=== PATIENT | female | born 1960 | race Caucasian/White ===

== ENCOUNTER 2022-08-12 08:31 | Outpatient (CLI) | payer OTHER, MEDICAID, SELFPAY ==
[2022-08-12 13:35] LABS: Vitamin D 25 Hydroxy* 62 ng/mL (30-80)
[2022-08-12 14:44] LABS: Cholesterol* 212 mg/dL (90-199); HDL Cholesterol* 89 mg/dL (>=50); LDL Cholesterol Calculated 109 mg/dL (<100); Triglycerides* 69 mg/dL (40-149)
== END 2022-08-12 08:32 | disposition home or self-care (01) ==
PROVIDERS: PCP Internal Medicine; Visit Provider Internal Medicine
DX: Z00.00 Encounter for general adult medical examination without abnormal findings (principal); E78.5 Hyperlipidemia, unspecified; M85.80 Other specified disorders of bone density and structure, unspecified site; R53.1 Weakness
CPT/HCPCS: 80061; 82306

== ENCOUNTER 2022-11-27 16:33 | Outpatient (REF) | payer OTHER, SELFPAY ==
[2022-11-27 17:33] LABS: C Reactive Protein* < 0.5 mg/dL (0.5-1.0)
[2022-11-27 18:01] LABS: Erythrocyte SedimentationRate* 9 mm/hr (2-20)
== END 2022-11-27 16:34 | disposition home or self-care (01) ==
LOC: NPINS 16:33
PROVIDERS: PCP Internal Medicine; Visit Provider Nurse Practitioner
DX: H53.9 Unspecified visual disturbance (principal); M85.89 Other specified disorders of bone density and structure, multiple sites
CPT/HCPCS: 36415; 77080; 85651; 86140

== ENCOUNTER 2022-11-28 13:58 | Outpatient (CLI) | payer OTHER, SELFPAY ==
--- NOTE | 2022-11-28 14:00 | CRLHL7_ITS ---
For Patients: As a result of the Century Cures Act, medical imaging exams and procedure reports are released immediately into your electronic medical record. You may view this report before your referring provider. If you have questions, please contact your health care provider. BILATERAL SCREENING MAMMOGRAM WITH COMPUTER-AIDED DETECTION AND TOMOSYNTHESIS TECHNIQUE: CC and MLO views were obtained. These mammographic images have been obtained using full-field digital technique. These mammographic images were interpreted with the benefit of computer-aided detection. Breast Tomosynthesis was used in this interpretation. COMPARISON FILM: 08/30/21, 06/17/19, 09/26/16. FINDINGS: The breasts are heterogeneously dense, which may obscure small masses IMPRESSION: There is no radiographic evidence for malignancy. ASSESSMENT: BI-RADS Category 1: Negative RECOMMENDATION: Routine screening mammogram in 1 year. A lay language report of this examination will be provided to the patient. Lew Perez M.D. Diagnostic Radiologist [email or web address] CARI/Dictated by: Lew Perez MD @ 11/29/2022 11:26:00 AM (Electronically Signed)
== END 2022-11-28 13:59 | disposition home or self-care (01) ==
LOC: MAMMO 14:00
PROVIDERS: PCP Internal Medicine; Visit Provider Internal Medicine
DX: Z12.31 Encounter for screening mammogram for malignant neoplasm of breast (principal); R92.2 Inconclusive mammogram
CPT/HCPCS: 77063; 77067

== ENCOUNTER 2022-12-04 13:42 | Outpatient (CLI) | payer OTHER, SELFPAY ==
--- NOTE | 2022-12-04 14:00 | CRLHL7_ITS ---
For Patients: As a result of the Cures Act, medical imaging exams and procedure reports are released immediately into your electronic medical record. You may view this report before your referring provider. If you have questions, please contact your health care provider. Indication: Migraines. Technique: Multiplanar, multisequence MRI of the brain performed without and with intravenous contrast, including high resolution imaging through the IAC`s. Contrast: 15 cc Dotarem. Comparison: MR brain 09/04/2012. Findings: IAC: The 5th, 7th and 8th cranial nerve complexes are intact. No abnormal signal. No cerebellopontine angle mass or mass effect. There is normal T2 signal present within the visualized inner ear structures. Brain: The corpus callosum, optic chiasm, pituitary gland, clivus, brainstem and cerebellum appear intact. The craniocervical junction appears preserved. There is no restricted diffusion. No intracranial hemorrhage. The ventricles are proportionate to the cerebral sulci. The 4th ventricle appears midline. The basal cisterns appear patent. No abnormal extra-axial fluid collection identified. There is no intracranial mass, abnormal mass-effect or midline shift identified. Major intracranial vascular flow voids appear grossly intact. Both globes are preserved. Impression: 1. The 5th, 7th and 8th cranial nerve complexes are intact. No cerebellopontine angle mass or mass effect. 2. No acute/subacute infarct. Dictated by Gus Arnett MD @ 12/04/2022 3:58:11 PM (Electronically Signed)
== END 2022-12-04 13:43 | disposition home or self-care (01) ==
LOC: MRI 13:43
PROVIDERS: PCP Internal Medicine; Visit Provider Nurse Practitioner
DX: G43.909 Migraine, unspecified, not intractable, without status migrainosus (principal); Z82.0 Family history of epilepsy and other diseases of the nervous system
CPT/HCPCS: 70553; A9575

== ENCOUNTER 2023-07-15 08:10 | Outpatient (CLI) | payer OTHER, SELFPAY | END 2023-07-15 08:11 | disposition home or self-care (01) | LOC: NFLDREF 07-17 14:16 | PROVIDERS: PCP Internal Medicine; Referring Provider Internal Medicine; Visit Provider Internal Medicine | DX: E78.5 Hyperlipidemia, unspecified (principal); M85.80 Other specified disorders of bone density and structure, unspecified site | CPT/HCPCS: 80061; 82306 ==

== ENCOUNTER 2023-10-16 07:04 | Outpatient (CLI) | payer OTHER, SELFPAY ==
--- NOTE | 2023-10-16 07:15 | CRLHL7_ITS ---
For Patients: As a result of the Century Cures Act, medical imaging exams and procedure reports are released immediately into your electronic medical record. You may view this report before your referring provider. If you have questions, please contact your health care provider. CLINICAL HISTORY: family hx. atherosclerosis TECHNIQUE: The carotid circulations and the vertebral arteries in the neck were examined with malik-scale ultrasound, color-flow and Doppler spectral analysis. Degrees of stenosis were determined using SRU 2002 Consensus Panel Criteria. FINDINGS: Sonographic images demonstrate no evidence of atherosclerotic plaque formation or suspicious soft tissue mass. There was antegrade blood flow demonstrated within the vertebral arteries and the subclavian arteries demonstrated a normal triphasic waveform. The spectral Doppler tracings of the common carotid, internal and external carotid arteries demonstrate no abnormal turbulence or spectral broadening. There was no significant elevation of peak systolic blood flow which would indicate a hemodynamically-significant stenosis by SRU criteria. The ICA/CCA peak systolic velocity ratio measures 1.0 on the right and 0.9 on the left. IMPRESSION: Normal carotid ultrasound. Dictated by Lew Perez MD @ 10/16/2023 8:23:04 AM (Electronically Signed)
== END 2023-10-16 07:05 | disposition home or self-care (01) ==
LOC: US 07:04
PROVIDERS: PCP Internal Medicine; Visit Provider Internal Medicine
DX: I65.29 Occlusion and stenosis of unspecified carotid artery (principal)
CPT/HCPCS: 93880

== ENCOUNTER 2023-12-02 14:32 | Outpatient (CLI) | payer OTHER, SELFPAY ==
--- NOTE | 2023-12-02 14:40 | CRLHL7_ITS ---
For Patients: As a result of the Century Cures Act, medical imaging exams and procedure reports are released immediately into your electronic medical record. You may view this report before your referring provider. If you have questions, please contact your health care provider. BILATERAL SCREENING MAMMOGRAM WITH COMPUTER-AIDED DETECTION AND TOMOSYNTHESIS TECHNIQUE: CC and MLO views were obtained. These mammographic images have been obtained using full-field digital technique. These mammographic images were interpreted with the benefit of computer-aided detection. Breast Tomosynthesis was used in this interpretation. COMPARISON FILM: 11/28/22, 08/30/21, 06/17/19. FINDINGS: The breasts are heterogeneously dense, which may obscure small masses IMPRESSION: There is no radiographic evidence for malignancy. ASSESSMENT: BI-RADS Category 2: Benign RECOMMENDATION: Routine screening mammogram in 1 year. A lay language report of this examination will be provided to the patient. Lew Perez M.D. Diagnostic Radiologist [email or web address] AIRAM/tisha / be/Dictated by: Lew Perez MD @ 12/03/2023 11:12:00 AM (Electronically Signed)
== END 2023-12-02 14:33 | disposition home or self-care (01) ==
LOC: MAMMO 14:33
PROVIDERS: PCP Internal Medicine; Visit Provider Internal Medicine
DX: Z12.31 Encounter for screening mammogram for malignant neoplasm of breast (principal); R92.2 Inconclusive mammogram
CPT/HCPCS: 77063; 77067

== ENCOUNTER 2024-05-27 08:00 | Outpatient (CLI) | payer OTHER, SELFPAY ==
--- OUTSIDE RECORDS SUMMARY | 2024-05-28 12:17 | XMS_ITS | Encounter Summary ---
Author Organization [facility] Address [address] [place] [address] Care Team Providers Care Carbon Furnace Operator Name Role Phone Jaja Flanagan MD Unavailable Frw, None Unavailable Unavailable Galina Cleaning MD Primary Care Provider [phone] Ivan Mccartney MD Unavailable Genesis Lopez APRN HVAC PROJECT ENGINEER Unavailable [phone] Genesis Lopez APRN HVAC PROJECT ENGINEER Unavailable [phone] Ivan Mccartney MD Unavailable Genesis Lopez APRN HVAC PROJECT ENGINEER Unavailable Encounter Details Date Type Department Care Team (Late st Contact Info) Description 06/12/2007 MyC Medical Advice [facility] in [place] EPIC KALEIDOSCOPE ANALYST [address] [place] [address] Jaja Flanagan MD [facility] [address] [place], [place] [id number] Social History Tobacco Use Types Packs/Day Years Used Date Smoking Tobacco: Never Alcohol Use Standard Drinks/Week Comments Yes 10 (1 standard drink = 0.6 oz pu re alcohol) Sex and Gender Information Value Date Recorded Sex Assigned at Not on file Gender Identity Not on file Sexual Orientation Not on file documented as of this encounter Plan of Treatment Not on file documented as of this encounter Visit Diagnoses Not on filedocumented in this encounter Care Teams Carbon Furnace Operator Relationship Specialty Start Date End Date Jaja Flanagan MD [facility] [address] [place] [address] PCP - Obstetrics/Gynecology 08/27/04 02/26/12 Frw, None PCP - Obstetrics/Gynecology Family Practice 02/27/12 Galina Cleaning MD [facility] & [address] [address] PCP - General Internal Medicine 07/25/22 Ivan Mccartney MD [address] [place], [place] [phone] Assigned Heart and Vascular Provider 09/07/22 11/22/22 Genesis Lopez APRN HVAC PROJECT ENGINEER [address] [place] [address] Nurse Practitioner Cardiovascular Disease 11/06/22 Genesis Lopez APRN HVAC PROJECT ENGINEER [address] [place] [address] Assigned Heart and Vascular Provider 11/23/22 03/28/23 Ivan Mccartney MD [address] [place] [address] Assigned Heart and Vascular Provider 03/29/23 04/04/23 Genesis Lopez APRN HVAC PROJECT ENGINEER [address] [place] [address] Assigned Heart and Vascular Provider 04/05/23 05/22/24 documented as of this encounter
--- OUTSIDE RECORDS SUMMARY | 2024-05-28 12:17 | XMS_ITS | Clinical Summary ---
Author Organization [facility] Address [address] [place] [address] Care Team Providers Care Early Childhood Name Role Phone Frw, None Unavailable Unavailable Galina Cleaning MD Primary Care Provider [phone] Genesis Lopez APRN EVENTS AND PROMOTIONS ASSISTANT Unavailable [phone] Allergies Active Allergy Reactions Criticality Noted Date Comments Amoxicillin-Pot Clavulanate Diarrhea 02/16/20 10 Medications Medication Sig Dispensed Refills Start Date End Date Status co-enzyme Q-10 100 MG/5ML LIQD liquid Take by mouth daily Active Calcium Carb-Cholecalciferol (CALCIUM 1000 + D PO) Act emily zinc 50 MG TABS Active Shiloh-3 Fatty Acids (FISH OIL) 1200 MG capsule Take 1,200 mg by mouth daily Active rosuvastatin (CRESTOR) 5 MG tabletIndications:Fly cification of both carotid arteries Take 0.5 tablets (2.5 mg) by mouth daily 45 tablet 1 11/14/2022 Active aspirin (ASA) 81 MG EC tabletIndications:Fly cification of both carotid arteries Take 1 tablet (81 mg) by mouth daily 11/14/2022 Active Active Problems Problem Noted Date Diagnosed Date Hyperlipidemia LDL goal <70 11/14/2022 Family History Medical History Relation Comments Breast Cancer Maternal Aunt Willian.A.D. Maternal Grandfather TayAShweta. Maternal Grandmother TayAShweta. Paternal Grandfather Diabetes Paternal Grandfather TayAShweta. Paternal Grandmother Relation Status Comments Maternal Aunt Maternal Grandfather Maternal Grandmother Paternal Grandfather Paternal Grandmother Social History Tobacco Use Types Packs/Day Years Used Date Smoking Tobacco: Never Smokeless Tobacco: Never Alcohol Use Standard Drinks/Week Comments Yes 10 (1 standard drink = 0.6 oz pu re alcohol) Adolescent Education Answer Date Record ed Getting School Help Needed Not on file 08/30 Sex and Gender Information Value Date Recorded Sex Assigned at Not on file Gender Identity Not on file Sexual Orientation Not on file Last Filed Vital Signs Vital Sign Reading Time Taken Comments Blood Pressure 112/80 09/05/2022 8:45 AM CDT Pulse 65 09/05/2022 8:45 AM CDT Temperature - - Respiratory Rate - - Oxygen Saturation 98% 09/05/2022 8:45 AM CDT Inhaled Oxygen Concentration - - Weight 60.5 kg (133 lb 6.4 oz) 09/05/2022 8:45 A M CDT Height 167.6 cm (5' 6) 09/05/2022 8:45 AM CDT Body Mass Index 21.53 09/05/2022 8:45 AM CDT Plan of Treatment Health Maintenance Due Date Last Done Comments ADVANCE CARE PLANNING 1960 ANNUAL REVIEW OF HM ORDERS 1960 CT COLONOGRAPHY 1960 FIT 1960 FLEX SIG 1960 GLUCOSE 1960 sDNA (Cologuard) 1960 COLONOSCOPY 1970 COLORECTAL CANCER SCREENING 1970 HIV SCREENING 1975 HEPATITIS C SCREENING 1978 YEARLY PREVENTIVE VISIT 07/11/2007 07/11/2006 MAMMO SCREENING 07/11/2008 07/11/2006, 08/27/2004 RSV VACCINE ( & 60+) (1 - 1-dose 60+ series) 2020 COVID-19 Vaccine (2022- season) 2023 09/13/2022, 06/14/2022, 11/05/2021, Additional history exists LIPID 08/12/2023 08/12/2022, 07/01, 08/16/2020, Additional history exists PHQ-2 (once per calendar year) 2023 PAP 07/19/2024 07/19/2021, 07/01, 09/17/2016, Additional history exists INFLUENZA VACCINE (Season Ended) 2024 09/13/2022, 08/21/2021, 08/25/2020, Additional history exists DTAP/TDAP/TD IMMUNIZATION (4 - Td or Tdap) 08/15/2032 08/15/2022, 02/20/2012, 06/05/2006 ZOSTER IMMUNIZATION Completed 05/27/2019, 03/25/2019, 03/17/2019, Additional history exists HPV IMMUNIZATION Aged Out No longer e ligible based on patient's age to complete this topic IPV IMMUNIZATION Aged Out No longer e ligible based on patient's age to complete this topic MENINGITIS IMMUNIZATION Aged Out No l onger eligible based on patient's age to complete this topic Pneumococcal Vaccine: Pediatrics (0 to 5 Years) and At-Risk Patients (6 to 64 Years) Aged Out No longer eligible based on patient's age to complete this topic RSV MONOCLONAL ANTIBODY Aged Out No l onger eligible based on patient's age to complete this topic Procedures Procedure Name Priority Date/Time Associated Diagnosis Comments LIPID PROFILE Routine 08/12/2022 7:45 AM CDT C MAMMOGRAM, SCREENING Routine 07/11/2006 Routine Welder Fitter Helper Examination HCL PAP THIN LAYER SCREEN Routine 11/14/2003 11:31 AM MULTIMEDIA TECHNICIAN Nonspec Abnl Pap Smear Cervix, Unspec from Last 3 Months or Most Recently Relevant to Health Maintenance Results * (ABNORMAL) Lipid Profile (08/12/2022 7:45 AM CDT) Triglycerides (External) 69 40 - 149 mg/dL NON-INTERFACE D (ONBASE SCANS) Cholesterol (External) 212(H) 90 - 199 mg/dL NON-INTERFACE D (ONBASE SCANS) LDL Cholesterol Calculated (External) 109(H) <100 mg/dL NON-INTERFACE D (ONBASE SCANS) HDL Cholesterol (External) 89 >=50 mg/dL NON-INTERFACE D (ONBASE SCANS) Blood 08/12/2022 7:45 AM CDT Xenia CARTERT - 09/02/2022 10:07 AM CDT Verified by Jace Cunningham on 09/02/2022. Galina Cleaning MD LAB - BLOOD ORDERABL ES [facility] PFT NON-INTERFACED (ONBASE SCANS) * MAMMOGRAM, SCREENING (07/11/2006) MAMMOGRAM CAT 1 [facility] Anatomical Region Laterality Modality Other Narrative 07/11/2006 PATIENT NAME: ALMITA MCKENNA DATE OF : 60 DATE OF SERVICE: 07-11-06 ORDERING PHYSICIAN: ??[place] ? PATIENT STATUS: OUTPT BILATERAL SCREENING MAMMOGRAM: Breast symptoms: ??None. Previous mammography: ??08-27-04. Breast parenchyma: ??Heterogeneously dense. Comment: ??No significant change. IMAGING IMPRESSION: ??ARC BIRADS Category No. 1, negative. A letter has been sent to the patient. This study was evaluated with the assistance of CAD (R2 v5.3). Reggie Balderas M.D./ceasar D: 07-15-06 T: 07-15-06 Jaja Flanagan MD SPECIAL IMAGING STUDIES * A THIN LAYER PAP SCREEN (11/14/2003 11:31 AM MULTIMEDIA TECHNICIAN) PAP WNL [facility] Narrative [facility] - 11/14/2003 11:31 AM MULTIMEDIA TECHNICIAN ?? DATE RECEIVED: ??11/08/03 PROVIDER: [place] SPECIMEN ADEQUACY: ??Satisfactory for evaluation INTERPRETATION: ??Negative for intraepithelial lesion or malignancy OTHER: ?? COMMENTS AND RECOMMENDATION: ??NO ENDOCERVICALS Pathologist sign: Wilbur Yates M.D. Silk Washing Machine Operator sign: LD Young(ASCP) Limitations: ??The Pap test is a screening test designed to detect squamous cell carcinoma of the cervix and its precursors. ??While the Pap test was designed for squamous lesions of the cervix, it may also detect glandular lesions of the cervix. ??It is, however, inaccurate for the detection of endometrial lesions and should not be used as a primary screening tool to evaluate women with suspected endometrial abnormalities. ??As a screening test, it has about 5 to 10 percent false-negative results. ??This rate appears to be reduced, but not eliminated, by liquid based (thin-layer) Pap tests. ??Therefore, remind your patient to consult you immediately if she experiences any suspicious signs or symptoms, regardless of her Pap test result. Jaja Flanagan MD [facility] [address] from Last 3 Months or Most Recently Relevant to Health Maintenance Care Teams Early Childhood Relationship Specialty Start Date End Date Frw, None PCP - Obstetrics/Gynecology Family Practice 02/27/12 Galina Cleaning MD [facility] [address] [place] [address] PCP - General Internal Medicine 07/25/22 Genesis Lopez APRN EVENTS AND PROMOTIONS ASSISTANT [address] [address] Nurse Practitioner Cardiovascular Disease 11/06/22
--- OUTSIDE RECORDS SUMMARY | 2024-05-28 12:17 | XMS_ITS | Encounter Summary ---
Author Organization [facility] Address [address] [place] [address] Care Team Providers Care Security Alarm Technician Name Role Phone Jaja Flanagan MD Unavailable Frw, None Unavailable Unavailable Galina Cleaning MD Primary Care Provider Ivan Mccartney MD Unavailable Genesis Lopez APRN INSTRUCTIONAL TECHNOLOGIST Unavailable Genesis Lopez APRN INSTRUCTIONAL TECHNOLOGIST Unavailable Ivan Mccartney MD Unavailable Genesis Lopez APRN INSTRUCTIONAL TECHNOLOGIST Unavailable [phone] Reason for Visit * Reason Onset Date Comments Refill Request 04/21/2006 hydroxyzine Encounter Details Date Type Department Care Team (Late st Contact Info) Description 04/21/2006 Refill [facility] in [place] ADMINISTRATIVE PROCESSOR [address] [place] [phone] Jaja Flanagan MD [facility] [address] [place], [place] [id number] Refill Request (hydroxyzine) Social History Tobacco Use Types Packs/Day Years Used Date Smoking Tobacco: Never Alcohol Use Standard Drinks/Week Comments Yes 10 (1 standard drink = 0.6 oz pu re alcohol) Sex and Gender Information Value Date Recorded Sex Assigned at Not on file Gender Identity Not on file Sexual Orientation Not on file documented as of this encounter Miscellaneous Notes * Telephone Encounter - Swati Oliva - 04/21/2006 4:20 PM CDT Accepting this Rx will FAX it directly to the pharmacy. documented in this encounter Plan of Treatment Not on file documented as of this encounter Visit Diagnoses Not on filedocumented in this encounter Care Teams Security Alarm Technician Relationship Specialty Start Date End Date Jaja Flangaan MD [facility] [address] [place] [address] PCP - Obstetrics/Gynecology 08/27/04 02/26/12 Frw, None PCP - Obstetrics/Gynecology Family Practice 02/27/12 Galina Cleaning MD [facility] & [address] [address] PCP - General Internal Medicine 07/25/22 Ivan Mccartney MD [address] [place] [place] [address] Assigned Heart and Vascular Provider 09/07/22 11/22/22 Genesis Lopez APRN INSTRUCTIONAL TECHNOLOGIST [address] [address] Nurse Practitioner Cardiovascular Disease 11/06/22 Genesis Lopez APRN INSTRUCTIONAL TECHNOLOGIST [address] [address] Assigned Heart and Vascular Provider 11/23/22 03/28/23 Ivan Mccartney MD [address] [place] [address] Assigned Heart and Vascular Provider 03/29/23 04/04/23 Genesis Lopez APRN INSTRUCTIONAL TECHNOLOGIST [address] [address] Assigned Heart and Vascular Provider 04/05/23 05/22/24 documented as of this encounter
--- OUTSIDE RECORDS SUMMARY | 2024-05-28 12:17 | XMS_ITS | Encounter Summary ---
Author Organization [facility] Address [address] [place] [address] Care Team Providers Care Director Of Radiology Name Role Phone Frw, None Unavailable Unavailable Galina Cleaning MD Primary Care Provider Ivan Mccartney MD Unavailable Genesis Lopez APRN RESEARCH AND DEVELOPMENT MANAGER Unavailable [phone] Genesis Lopez APRN RESEARCH AND DEVELOPMENT MANAGER Unavailable [phone] Ivan Mccartney MD Unavailable Genesis Lopez APRN RESEARCH AND DEVELOPMENT MANAGER Unavailable [phone] Encounter Details Date Type Department Care Team (Late st Contact Info) Description 08/12/2022 External Order Results [facility] [address] [place] [address] Outside, Provider Social History Tobacco Use Types Packs/Day Years [...] on file documented as of this encounter Procedures Procedure Name Priority Date/Time Associated Diagnosis Comments VITAMIN D DEFICIENCY SCREENING Routine 08/12/2022 7:45 AM CDT LIPID PROFILE Routine 08/12/2022 7:45 AM CDT documented in this encounter Results * Vitamin D Deficiency (08/12/2022 7:45 AM CDT) Vitamin D Deficiency Screening (External) 62 30 - 80 ng/mL NON-INTERFACED (ONBASE SCANS) Blood 08/12/2022 7:45 AM CDT Narrative B[facility]ZE PFT - 09/02/2022 10:07 AM CDT Verified by Jace Cunningham on 09/02/2022. Galina Cleaning MD LAB - BLOOD ORDERABL ES Performing Organization Address City/[facility]/ZIP Co de Phone Number [facility] PFT NON-INTERFACED (ONBASE SCANS) * (ABNORMAL) Lipid Profile (08/12/2022 7:45 AM CDT) Triglycerides (External) 69 40 - 149 mg/dL NON-INTERFACE D (ONBASE SCANS) Cholesterol (External) 212(H) 90 - 199 mg/dL NON-INTERFACE D (ONBASE SCANS) LDL Cholesterol Calculated (External) 109(H) <100 mg/dL NON-INTERFACE D (ONBASE SCANS) HDL Cholesterol (External) 89 >=50 mg/dL NON-INTERFACE D (ONBASE SCANS) Blood 08/12/2022 7:45 AM CDT Narrative [facility]ZE PFT - 09/02/2022 10:07 AM CDT Verified by Jace Cunningham on 09/02/2022. Galina Cleaning MD LAB - BLOOD ORDERABL ES B[facility]ZE PFT NON-INTERFACED (ONBASE SCANS) documented in this encounter Visit Diagnoses Not on filedocumented in this encounter Care Teams Director Of Radiology Relationship Specialty Start Date End Date Frw, None PCP - Obstetrics/Gynecology Family Practice 02/27/12 Galina Cleaning MD [facility] & [address] [address] PCP - General Internal Medicine 07/25/22 Ivan Mccartney MD [address] [place] [address] Assigned Heart and Vascular Provider 09/07/22 11/22/22 Genesis Lopez APRN RESEARCH AND DEVELOPMENT MANAGER [address] [address] Nurse Practitioner Cardiovascular Disease 11/06/22 Genesis Lopez APRN RESEARCH AND DEVELOPMENT MANAGER [address] [address] Assigned Heart and Vascular Provider 11/23/22 03/28/23 Ivan Mccartney MD [address] [place] [address] Assigned Heart and Vascular Provider 03/29/23 04/04/23 Genesis Lopez APRN RESEARCH AND DEVELOPMENT MANAGER [address] [address] Assigned Heart and Vascular Provider 04/05/23 05/22/24 documented as of this encounter
--- OUTSIDE RECORDS SUMMARY | 2024-05-28 12:17 | XMS_ITS | Encounter Summary ---
Author Organization [facility] Address [address] [place] [address] Care Team Providers Care Wood Flooring Specialist Name Role Phone Jaja Flanagan MD Unavailable [phone] Frw, None Unavailable Unavailable Galina Cleaning MD Primary Care Provider Ivan Mccartney MD Unavailable Genesis Lopez APRN WAREHOUSE ORDER SELECTOR Unavailable [phone] Genesis Lopez APRN WAREHOUSE ORDER SELECTOR Unavailable Ivan Mccartney MD Unavailable Genesis Lopez APRN WAREHOUSE ORDER SELECTOR Unavailable Reason for Visit * Reason Onset Date Comments Refill Request 11/03/2008 amy Encounter Details Date Type Department Care Team (Late st Contact Info) Description 11/03/2008 MyC Refill [facility] [place] TOP PRECIPITATOR OPERATOR [address] [place] [phone] Jaja Flanagan MD [facility] [address] [place], [place] [phone] Refill Request (amy) Social History Tobacco Use Types Packs/Day Years Used Date Smoking Tobacco: Never Alcohol Use Standard Drinks/Week Comments Yes 10 (1 standard drink = 0.6 oz pu re alcohol) Sex and Gender Information Value Date Recorded Sex Assigned at Not on file Gender Identity Not on file Sexual Orientation Not on file documented as of this encounter Miscellaneous Notes * Telephone Encounter - Kathy Carl - 11/07/2008 11:[address] Flanagan called her. TESTER * Telephone Encounter - Jaja Flanagan - 11/03/2008 12:15 PM SIZE TESTER Jason, can you call her? Also, tell her that we will no longer be getting samples after the first ofthe year. Does she want some now? TESTER * Telephone Encounter - Wanda Marie - 11/03/2008 9:05 AM CST Faxed request from pharmacy,will be directly faxed back if approved. Almita would like to speak to you about the rx and additional things before she gets this refill, soplease call her at her home phone. Thank you. TESTER documented in this encounter Plan of Treatment Not on file documented as of this encounter Visit Diagnoses Not on filedocumented in this encounter Care Teams Wood Flooring Specialist Relationship Specialty Start Date End Date Jaja Flanagan MD [facility] [address] [place] [address] PCP - Obstetrics/Gynecology 08/27/04 02/26/12 Frw, None PCP - Obstetrics/Gynecology Family Practice 02/27/12 Galina Cleaning MD [facility] - [address] [address] PCP - General Internal Medicine 07/25/22 Ivan Mccartney MD [address], [facility] [address] [address] Assigned Heart and Vascular Provider 09/07/22 11/22/22 Genesis Lopez APRN WAREHOUSE ORDER SELECTOR [address] [address] Nurse Practitioner Cardiovascular Disease 11/06/22 Genesis Lopez APRN WAREHOUSE ORDER SELECTOR [address] [address] Assigned Heart and Vascular Provider 11/23/22 03/28/23 Ivan Mccartney MD [address] [facility] [address] [id number] Assigned Heart and Vascular Provider 03/29/23 04/04/23 Genesis Lopez APRN WAREHOUSE ORDER SELECTOR [address] [address] Assigned Heart and Vascular Provider 04/05/23 05/22/24 documented as of this encounter
--- OUTSIDE RECORDS SUMMARY | 2024-05-28 12:17 | XMS_ITS | Encounter Summary ---
Author Organization [place] [facility] Address [address] [place] [address] Care Team Providers Care Stair Builder Name Role Phone Frw, None Unavailable Unavailable Galina Cleaning MD Primary Care Provider Genesis Lopez APRN LAND SURVEY TECHNICIAN Unavailable [phone] Genesis Lopez APRN LAND SURVEY TECHNICIAN Unavailable [phone] Ivan Mccartney MD Unavailable Genesis Lopez APRN LAND SURVEY TECHNICIAN Unavailable [phone] Encounter Details Date Type Department Care Team (Late st Contact Info) Description 12/01/2022 [facility] [address] [place] [address] Genesis Lopez APRN LAND SURVEY TECHNICIAN [address] [place] [address] Social History Tobacco Use Types Packs/Day Years [...] on filedocumented in this encounter Care Teams Stair Builder Relationship Specialty Start Date End Date Frw, None PCP - Obstetrics/Gynecology Family Practice 02/27/12 Galina Cleaning MD [facility] - [address] [address] PCP - General Internal Medicine 07/25/22 Genesis Lopez APRN LAND SURVEY TECHNICIAN [address] 922865 Nurse Practitioner Cardiovascular Disease 11/06/22 Genesis Lopez APRN LAND SURVEY TECHNICIAN [address] 196075 Assigned Heart and Vascular Provider 11/23/22 03/28/23 Ivan Mccartney MD [address] [facility] [address] [id number] Assigned Heart and Vascular Provider 03/29/23 04/04/23 Genesis Lopez APRN LAND SURVEY TECHNICIAN [address] 450395 Assigned Heart and Vascular Provider 04/05/23 05/22/24 documented as of this encounter
--- OUTSIDE RECORDS SUMMARY | 2024-05-28 12:17 | XMS_ITS | Encounter Summary ---
Author Organization [facility] Address [address] [place] [address] Care Team Providers Care Manager Fixed Income Name Role Phone Frw, None Unavailable Unavailable Galina Cleaning MD Primary Care Provider Ivan Mccartney MD Unavailable Genesis Lopez APRN FOOD SCIENCE TECHNICIAN Unavailable [phone] Genesis Lopez APRN FOOD SCIENCE TECHNICIAN Unavailable [phone] Ivan Mccartney MD Unavailable Genesis Lopez APRN FOOD SCIENCE TECHNICIAN Unavailable [phone] Encounter Details Date Type Department Care Team (Late st Contact Info) Description 09/30/2022 [facility] [place] [address] [place] [address] [address] [place] [address] Ivan Mccartney MD [address] [facility] [address] [place], [place] [id number] Social History Tobacco Use Types Packs/Day Years Used Date Smoking Tobacco: Never Smokeless Tobacco: Never Alcohol Use Standard Drinks/Week Comments Yes 10 (1 standard drink = 0.6 oz pu re alcohol) Sex and Gender Information Value Date Recorded Sex Assigned at Not on file Gender Identity Not on file Sexual Orientation Not on file COVID-19 Exposure Response Date Recorded In the last 10 days, have yo u been in contact with someone who was confirmed or suspected to have Coronavirus/COVID-19? No / Unsure 10/01/2022 8:37 AM CDT documented as of this encounter Plan of Treatment Not on file documented as of this encounter Visit Diagnoses Not on filedocumented in this encounter Care Teams Manager Fixed Income Relationship Specialty Start Date End Date Frw, None PCP - Obstetrics/Gynecology Family Practice 02/27/12 Galina Cleaning MD [facility] - [address] [address] PCP - General Internal Medicine 07/25/22 Ivan Mccartney MD [address] [id number] Assigned Heart and Vascular Provider 09/07/22 11/22/22 Genesis Lopez APRN FOOD SCIENCE TECHNICIAN [address] 529215 Nurse Practitioner Cardiovascular Disease 11/06/22 Genesis Lopez APRN FOOD SCIENCE TECHNICIAN [address] 875975 Assigned Heart and Vascular Provider 11/23/22 03/28/23 Ivan Mccartney MD [address] [id number] Assigned Heart and Vascular Provider 03/29/23 04/04/23 Genesis Lopez APRN FOOD SCIENCE TECHNICIAN [address] 340335 Assigned Heart and Vascular Provider 04/05/23 05/22/24 documented as of this encounter
--- OUTSIDE RECORDS SUMMARY | 2024-05-28 12:17 | XMS_ITS | Encounter Summary ---
Author Organization [facility] Address [address] [place] [address] Care Team Providers Care Solution Coordinator Name Role Phone Frw, None Unavailable Unavailable Galina Cleaning MD Primary Care Provider [phone] Ivan Mccartney MD Unavailable Genesis Lopez APRN IT ADMINISTRATOR Unavailable [phone] Genesis Lopez APRN IT ADMINISTRATOR Unavailable [phone] Ivan Mccartney MD Unavailable Genesis Lopez APRN IT ADMINISTRATOR Unavailable [phone] Encounter Details Date Type Department Care Team (Late st Contact Info) Description 10/01/2022 [facility] [place] [facility] Adv[facility] [address] [place] [address] [address] [place] [address] Ivan Mccartney MD [address] [facility] [address] [place], [place] 7913[address] Social History Tobacco Use Types Packs/Day Years [...] on filedocumented in this encounter Care Teams Solution Coordinator Relationship Specialty Start Date End Date Frw, None PCP - Obstetrics/Gynecology Family Practice 02/27/12 Galina Cleaning MD [facility] - [address] [address] PCP - General Internal Medicine 07/25/22 Ivan Mccartney MD [address] 807115 Assigned Heart and Vascular Provider 09/07/22 11/22/22 Genesis Lopez APRN IT ADMINISTRATOR [address] 230185 Nurse Practitioner Cardiovascular Disease 11/06/22 Genesis Lopez APRN IT ADMINISTRATOR [address] 191145 Assigned Heart and Vascular Provider 11/23/22 03/28/23 Ivan Mccartney MD [address] [id number] Assigned Heart and Vascular Provider 03/29/23 04/04/23 Genesis Lopez APRN IT ADMINISTRATOR [address] 232475 Assigned Heart and Vascular Provider 04/05/23 05/22/24 documented as of this encounter
--- OUTSIDE RECORDS SUMMARY | 2024-05-28 12:17 | XMS_ITS | Encounter Summary ---
Author Organization [facility] Address [address] [place] [address] Care Team Providers Care Instrument Processing Tech Name Role Phone Jaja Flanagan MD Unavailable Frw, None Unavailable Unavailable Galina Cleaning MD Primary Care Provider Ivan Mccartney MD Unavailable Genesis Lopez APRN PRODUCTION AIDE Unavailable [phone] Genesis Lopez APRN PRODUCTION AIDE Unavailable [phone] Ivan Mccartney MD Unavailable Genesis Lopez APRN PRODUCTION AIDE Unavailable [phone] Reason for Visit * Reason Onset Date Comments Refill Request 11/07/2008 yana Encounter Details Date Type Department Care Team (Late st Contact Info) Description 11/06/2008 MyC Refill [facility] [place] GROOVER AND STRIPER OPERATOR [address] [place] [phone] Jaja Flanagan MD [facility] [address] [place], [place] [phone] Refill Request (yana) Social History Tobacco Use Types Packs/Day Years Used Date Smoking Tobacco: Never Alcohol Use Standard Drinks/Week Comments Yes 10 (1 standard drink = 0.6 oz pu re alcohol) Sex and Gender Information Value Date Recorded Sex Assigned at Not on file Gender Identity Not on file Sexual Orientation Not on file documented as of this encounter Miscellaneous Notes * Telephone Encounter - Cherise Uribe - 11/07/2008 9:24 AM CSTMessage from Thuyjer[place]: Dalila Dubose Bacilio Nov 07, 2008 9:21 AM ----- Message ----- From: Almita Clarke Sent: Nov 06, 2008 6:55 PM To: [facility] [place] Subject: Medication Renewal Request Original authorizing provider: MD Almita Catherine would like a refill of the following medications: YANA 3-0.02 MG OR TABS [Jaja Flanagan MD] Preferred pharmacy: other Comment: Hi, Dr. Flanagan had called and left a message for me to email her through my chart. I forgot how todo that so thought that I'd forward this to you and if you could give her my email address, she João can just email that way. My email address is [email or web address] Phone number for home, after 3:15, is [phone]. Thank you so much. Sasha CH OPTIMIZATION ANALYST documented in this encounter Plan of Treatment Not on file documented as of this encounter Visit Diagnoses Not on filedocumented in this encounter Care Teams Instrument Processing Tech Relationship Specialty Start Date End Date Jaja Flanagan MD [facility] [address] [place] [address] PCP - Obstetrics/Gynecology 08/27/04 02/26/12 Frw, None PCP - Obstetrics/Gynecology Family Practice 02/27/12 Galina Cleaning MD [facility] - [address] [address] PCP - General Internal Medicine 07/25/22 Ivan Mccartney MD [address] [facility] [address] [address] Assigned Heart and Vascular Provider 09/07/22 11/22/22 Genesis Lopez APRN PRODUCTION AIDE [address] [address] Nurse Practitioner Cardiovascular Disease 11/06/22 Genesis Lopez APRN PRODUCTION AIDE [address] [address] Assigned Heart and Vascular Provider 11/23/22 03/28/23 Ivan Mccartney MD [address] [facility] [address] [id number] Assigned Heart and Vascular Provider 03/29/23 04/04/23 Genesis Lopez APRN PRODUCTION AIDE [address] 613355 Assigned Heart and Vascular Provider 04/05/23 05/22/24 documented as of this encounter
--- OUTSIDE RECORDS SUMMARY | 2024-05-28 12:17 | XMS_ITS | Encounter Summary ---
Author Organization [place] [facility] Address [address] [place] [address] Care Team Providers Care Hog Driver Name Role Phone Frw, None Unavailable Unavailable Galina Cleaning MD Primary Care Provider Ivan Mccartney MD Unavailable Genesis Lopez APRN FOOD SAFETY DIRECTOR Unavailable [phone] Genesis Lopez APRN FOOD SAFETY DIRECTOR Unavailable [phone] Ivan Mccartney MD Unavailable Genesis Lopez APRN FOOD SAFETY DIRECTOR Unavailable [phone] Encounter Details Date Type Department Care Team (Late st Contact Info) Description 08/16/2020 External Order Results [facility] [address] [place] [address] Outside, Provider Social History Tobacco Use Types [...] Date/Time Associated Diagnosis Comments LIPID PROFILE Routine 08/16/2020 7:40 AM CDT documented in this encounter Results * Lipid Profile (08/16/2020 7:40 AM CDT) Cholesterol (External) 181 90 - 200 MG/DL NON-INTERFACE D (ONBASE SCANS) Triglycerides (External) 60 40 - 197 MG/DL NON-INTERFACE D (ONBASE SCANS) LDL-Cholesterol (External) 73 <100 mg/dL NON-INTERFACE D (ONBASE SCANS) HDL Cholesterol (External) 96 >=50 mg/dL NON-INTERFACE D (ONBASE SCANS) Blood 08/16/2020 7:40 AM CDT Narrative [facility] - 09/02/2022 10:07 AM CDT Verified by Nadine Thompson on 09/02/2022. Galina Cleaning MD LAB - BLOOD ORDERABL ES [facility] NON-INTERFACED (ONBASE SCANS) documented in this encounter Visit Diagnoses Not on filedocumented in this encounter Care Teams Hog Driver Relationship Specialty Start Date End Date Frw, None PCP - Obstetrics/Gynecology Family Practice 02/27/12 Galina Cleaning MD [facility] & [address] [address] PCP - General Internal Medicine 07/25/22 Ivan Mccartney MD [address] 885695 Assigned Heart and Vascular Provider 09/07/22 11/22/22 Genesis Lopez APRN FOOD SAFETY DIRECTOR [address] [address] Nurse Practitioner Cardiovascular Disease 11/06/22 Genesis Lopez APRN FOOD SAFETY DIRECTOR [address] [address] Assigned Heart and Vascular Provider 11/23/22 03/28/23 Ivan Mccartney MD [address] [id number] Assigned Heart and Vascular Provider 03/29/23 04/04/23 Genesis Lopez APRN FOOD SAFETY DIRECTOR [address] 072515 Assigned Heart and Vascular Provider 04/05/23 05/22/24 documented as of this encounter
--- OUTSIDE RECORDS SUMMARY | 2024-05-28 12:17 | XMS_ITS | Clinical Summary ---
Author Organization [facility] Address [place], [place] [address] Care Team Providers Care Lathe Setup Operator Name Role Phone Sujata Sloan MD Primary Care Provider Allergies Active Allergy Reactions Criticality Noted Date Comments Amoxicillin-Pot Clavulanate Diarrhea 02/16/20 10 Medications Medication Sig Dispensed Refills Start Date End Date Status glucosamine-chondroit -vit c-mn (GLUCOSAMINE CHONDROITIN MAXSTR) 500-400 mg CapIndications:Osteoa rthritis Take 1 Cap by mouth 3 times daily. 90 Cap 3 02/16/2010 Active multivitamin-folic acid 0.4 mg (MULTI-DAY) tablet Take 1 tablet by mouth once daily. 0 08/28/2010 Active hydrOXYzine HCl (ATARAX) 10 mg tabletIndications:Jon matographism Take 1 tablet by mouth 3 times daily. 90 tablet 0 05/26/2012 Active omega-3 fatty acids-vitamin E (FISH OIL) 1,000 mg cap Take by mouth. 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 Other and unspecified hyperlipidemia 02/16/2010 Dermatographism 02/16/2010 Eyelashes turned in 02/16/2010 Immunizations Name Administration Dates Next Due AMB Influenza, IIV4 PF (=>6 mos Flulaval,Fluzone Fluarix)(Flu Clinic Only) 10/05/2015,09/13/2014 Influenza, IIV3 (Age >=3 years) 09/03/2012,08/28 Tdap 02/20/2012 Zoster (Zostavax-ZVL, live) 11/03/2014 Family History Medical History Relation Name Comments Diabetes Brother prediabetes Other Child daughter fibrom yalgia Hyperlipidemia Father Cancer-breast Maternal Aunt Diabetes Mother prediabetes Relation Name Status Comments Brother Child Father Maternal Aunt Mother Social History Tobacco Use Types Packs/Day Years Used Date Smoking Tobacco: Never Smokeless Tobacco: Never Tobacco Cessation:Counseling Given: Yes Alcohol Use Standard Drinks/Week Comments Yes 0 (1 standard drink = 0.6 oz pur e alcohol) WINE PHQ-2 Answer Date Recorded PHQ-2 Score 0 01/31/2019 Sex and Gender Information Value Date Recorded Sex Assigned at Not on file Gender Identity Not on file Sexual Orientation Not on file Obstetrics History Para Term AB IAB SAB Ectopic Multiple Livin g Live Births 2 2 2 Date Outcome GA Total Labor Labor/2nd/3rd Weight Sex Type Anes PTL Amelie A1 A5 Name Clin Para Para Last Filed Vital Signs Vital Sign Reading Time Taken Comments Blood Pressure 94/64 05/28/2018 7:58 AM CDT Pulse 66 05/28/2018 7:58 AM CDT Temperature 36.7 ??C (98.1 ??F) 03/21/2014 3:04 PM CD T Respiratory Rate 16 03/05/2012 8:03 AM CDT Oxygen Saturation 99% 05/28/2018 7:58 AM CDT Inhaled Oxygen Concentration - - Weight 54.7 kg (120 lb 9.6 oz) 05/28/2018 7:58 A M CDT Height 167.2 cm (5' 5.83) 05/28/2018 7:58 AM CD T Body Mass Index 19.57 05/28/2018 7:58 AM CDT Plan of Treatment Health Maintenance Due Date Last Done Comments HIV for age 15-65 1975 Hepatitis C screening for age 18-79 1978 Zoster (shingles) series for age 50+ (2 of 3) 12/29/2014 11/03/2014 BMI (ht and wt on same day) for age 18+ 05/28/2019 05/28/2018 Depression screening for age 12+ 05/28/2019 05/28/2018 Mammogram for age 45-75 06/04/2019 06/04/20 18, 09/26/2016, 07/13/2015, Additional history exists Tetanus booster 02/19/2022 02/20/2012, 01/01 (Completed outside of [facility]) Lipids for age 45-75 05/28/2023 05/28/2018, 03/21/2014, 05/19/2012, Additional history exists COVID-19 vaccine series ( season) 2023 Pap test for age 21-65 07/19/2024 , 07/19/2021, 09/17/2016, Additional history exists Influenza for age 50-64 08/01/2024 10/05/20 15, 09/13/2014, 09/03/2012, Additional history exists Colonoscopy through age 75 08/17/202508/17, 08/27/2010, 08/23/2010 Tdap Completed 02/20/2012 Pneumococcal series for age 6-64 Aged Out No longer eligible based on patient's age to complete this topic Procedures Procedure Name Priority Date/Time Associated Diagnosis Comments SOLE SEWER HAND THIN PREP PAP SCREEN IMAGED Routine 07/19/2021 8:00 AM CDT XR MAMMO BILAT SCREENING Routine 06/04/2018 8:56 AM CDT Visit for screening mammogram LIPID PANEL W REFLEX MEASURED LDL Routine 05/28/2018 8:39 AM CDT Lipid screening from Last 3 Months or Most Recently Relevant to Health Maintenance Results * SOLE SEWER HAND THIN PREP PAP SCREEN IMAGED (07/19/2021 8:00 AM CDT) Case Report Gynecologic Cytology Report ? Case: [id number] ? Authorizing Provider: ??Galina Cleaning MD ?Collected: ? 07/19/2021 0800 ? Ordering Location: ? [facility] ?Received: ?07/20/2021 0753 ? First Screen: ?Charles Buckner ? Specimen: ?SOLE SEWER HAND ThinPrep Vial Screening, Cervical/Vaginal ? 08/01/2021 10:39 AM CDT [facility]- ENTRAL [facility] INTERPRETATION/ RESULT NEGATIVE FOR INTRAEPITHELIAL LESION OR MALIGNANCY (NIL) (none) 08/01/2021 10:39 AM [facility] IMEN ADEQUACY Satisfactory for evaluation 08/01/2021 10:39 AM CDT [facility] HPV REQUEST HPV and PAP 08/01/2021 10:39 AM CDT [facility]-C ENTRAL LABORATORY Date of LMP 08/01/2021 10:39 AM CDT [facility]-C ENTRAL LABORATORY Comment:2002 Last Pap Date 09/17/2016 08/01/2021 10:39 AM CDT [facility]-C ENTRAL LABORATORY Last Pap Result 10:39 AM CDT [facility]- ENTRAL [facility] Comment:Normal Menstrual Status Hysterectomy-cerv ix absent 08/01/2021 10:39 AM CDT [facility] Comment:Menopause Additional Information 08/01/2021 10:39 AM CDT [facility] Comment: Cervix Absent (vaginal cuff pap) Hx Hysterectomy (no cervix) for cervical dysplasia Interpreted at [facility] - [address], [place] [address] Automated Review Successful 08/01/2021 10:39 AM CDT [facility] Comment:Specimen processed s uccessfully by automated burn crew member device, Connectivity Data SystemsPrep Imaging System, [employer] ANCILLARY TESTING SOLE SEWER HAND HPV Ordered, Please see separate report 08/01/2021 10:39 AM CDT [facility] Note The pap test is a screening technique, not a diagnostic procedure. It is used primarily to screen for squamous cancers and precursor lesions. Published studies have shown that it is subject to both false negative and false positive results. The pap test should not be used as the sole means to diagnose or exclude pre-malignant and malignant lesions. 08/01/2021 10:39 AM CDT [facility] Other (Cervical/Vagina l) 07/19/2021 8:00 AM CDT 07/20/2021 7:53 AM CDT Galina Cleaning MD PATHOLOGY/CYTOLOGY [facility] [address] [place] [address], [place] * XR MAMMO BILAT SCREENING (06/04/2018 8:56 AM CDT) Anatomical Region Laterality Modality BREASTS, Breast Left, Breast Right Bilateral Mammography Impressions 06/16/2018 12:17 PM CDT ??There is no radiographic evidence for malignancy. ??Recommend annual mammograms. A lay language report of this examination will be provided to the patient. MAMMOGRAM ASSESSMENT: ??ACR 2 Benign Narrative 06/16/2018 12:17 PM CDT XR MAMMO BILAT SCREENING [[id number]] CLINICAL HISTORY: ??This is an asymptomatic 58 y.o. patient. INDICATION FOR EXAM: Mammogram Screening. TECHNIQUE: CC & MLO views were obtained. ??This digital study was evaluated with the assistance of Computer-Aided Detection. COMPARISON FILMS: Yes 09/26/16 [facility] FINDINGS: ??Mammographically, the breast tissue is heterogeneously dense. ?? No suspicious masses or microcalcifications. ??Benign appearing calcifications within left breast and Benign appearing mass(es) within left breast. Sujata Sloan MD MAMMO * (ABNORMAL) LIPID PANEL W REFLEX MEASURED LDL (05/28/2018 8:39 AM CDT) CHOLESTEROL,TOTAL 205(H) 100 - 199 mg/dL 05/28/2018 4:53 PM CDT [facility] TRIGLYCERIDES 63 <150 mg/dL 05/28/2018 4:53 PM CDT [facility] HDL CHOLESTEROL 74 >40 mg/dL 8 4:53 PM CDT [facility] NON-HDL CHOLESTEROL 131 <145 mg/dl 05/28/2018 4:53 PM CDT [facility] CHOL/HDL RATIO 2.77 <4.50 05/28/2018 4:53 PM CDT [facility] LDL CHOLESTEROL 118 <=130 mg/dL 05/28/2018 4:53 PM CDT [facility] PROVIDER ORDERED STATUS RANDOM 05/28/2018 4:53 PM CDT [facility] Blood BLOOD SPECIMEN / Unknown Venipuncture / Unknown 05/28/2018 8:39 AM CDT 05/28/2018 8:39 AM CDT Sujata Sloan MD [facility] [address] [place] [address], [place] from Last 3 Months or Most Recently Relevant to Health Maintenance Care Teams Lathe Setup Operator Relationship Specialty Start Date End Date Sujata Slona MD PCP - General Family Practice 07/16/12
--- OUTSIDE RECORDS SUMMARY | 2024-05-28 12:17 | XMS_ITS | Encounter Summary ---
Author Organization [place] Address [address] [place] [address] Care Team Providers Care Senior Peoplesoft Developer Name Role Phone Frw, None Unavailable Unavailable Galina Cleaning MD Primary Care Provider Ivan Mccartney MD Unavailable Genesis Lopez APRN POWER HOUSE ENGINEER Unavailable [phone] Genesis Lopez APRN POWER HOUSE ENGINEER Unavailable [phone] Ivan Mccartney MD Unavailable Genesis Lopez APRN POWER HOUSE ENGINEER Unavailable [phone] Encounter Details Date Type Department Care Team (Late st Contact Info) Description 07/17/2021 External Order Results [facility] [address] [place] [address] Outside, Provider Social History Tobacco Use Types [...] Date/Time Associated Diagnosis Comments LIPID PROFILE Routine 07/17/2021 7:35 AM CDT LIPID PROFILE Routine 05/10/2020 8:08 AM CDT documented in this encounter Results * (ABNORMAL) Lipid Profile (07/17/2021 7:35 AM CDT) Cholesterol (External) 200(H) 90 - 199 MG/DL NON-INTERFACE D (ONBASE SCANS) Triglycerides (External) 68 40 - 149 MG/DL NON-INTERFACE D (ONBASE SCANS) LDL-Cholesterol (External) 101(H) <100 mg/dL NON-INTERFACE D (ONBASE SCANS) HDL Cholesterol (External) 85 >=50 mg/dL NON-INTERFACE D (ONBASE SCANS) Blood 07/17/2021 7:35 AM CDT Narrative [facility] - 09/02/2022 10:02 AM CDT Verified by Radha Echavarria on 09/02/2022. Galina Cleaning MD LAB - BLOOD ORDERABL ES Performing Organization Address [facility]/ZIP Co de Phone Number [facility] NON-INTERFACED (ONBASE SCANS) * (ABNORMAL) Lipid Profile (05/10/2020 8:08 AM CDT) Cholesterol (External) 269(H) 90 - 200 MG/DL NON-INTERFACE D (ONBASE SCANS) Triglycerides (External) 72 40 - 197 MG/DL NON-INTERFACE D (ONBASE SCANS) LDL-Cholesterol (External) 154(H) <100 mg/dL NON-INTERFACE D (ONBASE SCANS) HDL Cholesterol (External) 101 >=50 mg/dL NON-INTERFACE D (ONBASE SCANS) Blood 05/10/2020 8:08 AM CDT Narrative [facility] - 09/02/2022 10:10 AM CDT Verified by Radha Echavarria on 09/02/2022. Galina Cleaning MD LAB - BLOOD ORDERABL ES [facility]REEZE PFT NON-INTERFACED (ONBASE SCANS) documented in this encounter Visit Diagnoses Not on filedocumented in this encounter Care Teams Senior Peoplesoft Developer Relationship Specialty Start Date End Date Frw, None PCP - Obstetrics/Gynecology Family Practice 02/27/12 Galina Cleaning MD [facility] & [address] [address] PCP - General Internal Medicine 07/25/22 Ivan Mccartney MD [address] [place] [address] Assigned Heart and Vascular Provider 09/07/22 11/22/22 Genesis Lopez APRN POWER HOUSE ENGINEER [address] [id number] Nurse Practitioner Cardiovascular Disease 11/06/22 Genesis Lopez APRN POWER HOUSE ENGINEER [address] [address] Assigned Heart and Vascular Provider 11/23/22 03/28/23 Ivan Mccartney MD [address] [place] [id number] Assigned Heart and Vascular Provider 03/29/23 04/04/23 Genesis Lopez APRN POWER HOUSE ENGINEER [address] [id number] Assigned Heart and Vascular Provider 04/05/23 05/22/24 documented as of this encounter
--- OUTSIDE RECORDS SUMMARY | 2024-05-28 12:17 | XMS_ITS | Referral Summary ---
Author Organization [place] Address [address] [place] [address] Care Team Providers Care Reinforcing Steel Erector Name Role Phone Frw, None Unavailable Unavailable Galina Cleaning MD Primary Care Provider [phone] Genesis Lopez APRN HISTOLOGICAL ILLUSTRATOR Unavailable [phone] Allergies Active Allergy Reactions Criticality Noted Date Comments Amoxicillin-Pot Clavulanate Diarrhea 02/16/20 10 Medications Medication Sig Dispensed Refills Start Date End Date Status co-enzyme Q-10 100 MG/5ML LIQD liquid Take by mouth daily Active Calcium Carb-Cholecalciferol (CALCIUM 1000 + D PO) Act emily zinc 50 MG TABS Active [place]-3 Fatty Acids (FISH OIL) 1200 MG capsule [...] Diagnosed Date Hyperlipidemia LDL goal <70 11/14/2022 Social History Tobacco Use Types Packs/Day Years [...] 09/05/2022 8:45 AM CDT Plan of Treatment Not on file Procedures Procedure Name Priority Date/Time Associated Diagnosis Comments LIPID PROFILE Routine 08/12/2022 7:45 AM CDT C MAMMOGRAM, SCREENING Routine 07/11/2006 Routine Eyelet Punch Operator Examination HCL PAP THIN LAYER SCREEN Routine 11/14/2003 11:31 AM DELIVERY STOCK CLERK Nonspec Abnl Pap Smear Cervix, Unspec from [...] SCANS) Blood 08/12/2022 7:45 AM CDT Narrative LUIS CARTERT - 09/02/2022 10:07 AM CDT Verified by Jace Cunningham on 09/02/2022. Galina Cleaning MD LAB - BLOOD ORDERABL ES LUIS VELAZQUEZ NON-INTERFACED (ONBASE SCANS) * MAMMOGRAM, SCREENING (07/11/2006) MAMMOGRAM CAT 1 [facility] Anatomical Region Laterality Modality Other Narrative [...] THIN LAYER PAP SCREEN (11/14/2003 11:31 AM DELIVERY STOCK CLERK) PAP WNL [facility] Narrative [facility] - 11/14/2003 11:31 AM DELIVERY STOCK CLERK ?? DATE RECEIVED: ??11/08/03 PROVIDER: [place] SPECIMEN ADEQUACY: ??Satisfactory for evaluation INTERPRETATION: ??Negative for intraepithelial lesion or malignancy OTHER: ?? COMMENTS AND RECOMMENDATION: ??NO ENDOCERVICALS Pathologist sign: Wilbur Yates M.D. Senior Research Analyst sign: LD Young(ASCP) Limitations: ??The Pap test [...] Pap test result. Jaja Flanagan MD [facility] [address] [place] [address] from Last 3 Months or Most Recently Relevant to Health Maintenance Care Teams Reinforcing Steel Erector Relationship Specialty Start Date End Date Frw, None PCP - Obstetrics/Gynecology Family Practice 02/27/12 Galina Cleaning MD [facility] [address] [place] [address] PCP - General Internal Medicine 07/25/22 Genesis Lopez APRN HISTOLOGICAL ILLUSTRATOR [address] [address] Nurse Practitioner Cardiovascular Disease 11/06/22
== END 2024-05-27 08:01 | disposition home or self-care (01) ==
LOC: NFLDREF 05-28 12:13
PROVIDERS: PCP Internal Medicine; Referring Provider Internal Medicine; Visit Provider Internal Medicine
DX: E78.5 Hyperlipidemia, unspecified (principal); M85.80 Other specified disorders of bone density and structure, unspecified site; Z13.1 Encounter for screening for diabetes mellitus
CPT/HCPCS: 80061; 82306; 82947

== ENCOUNTER 2025-02-16 11:17 | Outpatient (CLI) | payer BC, SELFPAY ==
--- NOTE | 2025-02-16 11:30 | CRLHL7_ITS ---
For Patients: As a result of the Century Cures Act, medical imaging exams and procedure reports are released immediately into your electronic medical record. You may view this report before your referring provider. If you have questions, please contact your health care provider. BILATERAL SCREENING MAMMOGRAM WITH COMPUTER-AIDED DETECTION AND TOMOSYNTHESIS TECHNIQUE: CC and MLO views were obtained. These mammographic images have been obtained using full-field digital technique. These mammographic images were interpreted with the benefit of computer-aided detection. Breast Tomosynthesis was used in this interpretation. COMPARISON FILM: 12/22/23, 11/28/22, 08/30/21. FINDINGS: There are scattered areas of fibroglandular density. IMPRESSION: There is no radiographic evidence for malignancy. ASSESSMENT: BI-RADS Category 1: Negative RECOMMENDATION: Routine screening mammogram in 1 year. A lay language report of this examination will be provided to the patient. Lew Perez M.D. Diagnostic Radiologist [email or web address] SP/Dictated by: Lew Perez MD @ 02/16/2025 12:04:00 PM (Electronically Signed)
== END 2025-02-16 11:18 | disposition home or self-care (01) ==
LOC: MAMMO 11:18
PROVIDERS: PCP Internal Medicine; Visit Provider Internal Medicine
DX: Z12.31 Encounter for screening mammogram for malignant neoplasm of breast (principal)
CPT/HCPCS: 77063; 77067

== ENCOUNTER 2025-06-06 07:50 | Outpatient (CLI) | payer MEDICARE, BC, SELFPAY | END 2025-06-06 07:51 | disposition home or self-care (01) | LOC: NFLDREF 06-08 02:03 | PROVIDERS: PCP Internal Medicine; Referring Provider Internal Medicine; Visit Provider Internal Medicine | DX: E78.5 Hyperlipidemia, unspecified (principal); M85.80 Other specified disorders of bone density and structure, unspecified site; R53.81 Other malaise; R53.83 Other fatigue; D12.6 Benign neoplasm of colon, unspecified | CPT/HCPCS: 80061; 82306; 84443 ==